=== PATIENT | female | born 1940 | race Caucasian/White ===

== ENCOUNTER 2016-11-08 13:51 | Emergency (ER) | payer MEDICARE, BC ==
[2016-11-08] MEDS ORDERED: LIDOCAINE HCL/EPINEPHRINE 30 ML VIAL IJ ONE (14:31)
[2016-11-08 15:19] VITALS: BP 157/50
--- NOTE | 2016-11-08 15:25 | ERNOTE ---
Integumentary HPI - Narrative Date of Service: 11/08/16 - General Presenting Symptoms: abscess Time Seen by Provider: 11/08/16 14:34 Source: patient Exam Limitations: no limitations - Immun/Allergies/Home Medications Allergies/Adverse Reactions: Allergies Allergy/AdvReac Type Severity Reaction Status Date / Time aspirin Allergy Mild Hives Verified 11/08/16 14:02 naproxen sodium [From Aleve] Allergy Mild Hives Verified 11/08/16 14:02 [id number] Reductase AdvReac Mild SIBLEY, MUSCLE Verified 11/08/16 14:02 Inhibitor AND JOINT ACHES Home Medications: HOME MEDICATIONS Albuterol Sulfate [Proair Hfa] 2 puff IH Q4H PRN 11/02/14 [Last Taken Unknown] Atenolol [Tenormin] 25 mg PO BID 11/02/14 [Last Taken Unknown] Budesonide/Formoterol Fumarate [Symbicort 160-4.5 Mcg Inhaler] 2 puff IH BID 06/09 [Last Taken Unknown] Levothyroxine Sodium [Synthroid] 88 mcg PO DAILY 11/02/14 [Last Taken Unknown] Loratadine [Claritin] 10 mg PO DAILY 11/02/14 [Last Taken Unknown] Montelukast Sodium [Singulair] 10 mg PO DAILY 11/02/14 [Last Taken Unknown] Simvastatin [Zocor] 20 mg PO HS 11/02/14 [Last Taken Unknown] Ascorbic Acid [Vitamin C] 1,000 mg PO DAILY 11/07/14 [Last Taken Unknown] Calcium Carbonate [[id number]] 1,000 mg PO DAILY 11/07/14 [Last Taken Unknown] Cholecalciferol (Vitamin D3) [Vitamin D-3] 2,000 unit PO DAILY 11/07/14 [Last Taken Unknown] [place]-3 Fatty Acids/Fish Oil [Fish Oil 1,000 mg Capsule] 1 each PO PRN 11/07/14 [Last Taken Unknown] Selenium 50 mcg PO PRN 11/07/14 [Last Taken Unknown] Vitamin B Complex [B Complex] 1 each PO PRN 11/07/14 [Last Taken Unknown] Vitamin E (Dl,Tocopheryl Acet) [Vitamin E] 400 units PO PRN 11/07/14 [Last Taken Unknown] Potassium Chloride [Klor-Con M10] 20 meq PO DAILY 02/16/15 [Last Taken Unknown] Meloxicam [Mobic] 15 mg PO DAILY #30 tablet 07/11/15 [Last Taken Unknown] Guaifenesin/Codeine Phosphate [Codeine-Guaifen 10-100 mg/5 ml] 120 ml PO TID PRN 7 Days 10/07/16 [Last Taken Unknown] Cephalexin [Keflex] 500 mg PO TID #30 capsule 11/08/16 [Last Taken Unknown] - Pain Pain Score: 6 - History of Present Illness Narrative: large abscess to right flank area measuring 2.5 x 2.5 cm with approximate 5 x 7 cm encircling erythema, tenderness, warmth. Denies fevers, chills or body aches. Recently treated for COPD exacerbation and states has finished her antibiotics. Location: Reports: torso Quality: Reports: painful Severity: moderate Exposure: Reports: no cause identified Modifying Factors - (Improves): Reports: nothing Modifying Factors - (Worsens): Reports: nothing Associated Symptoms: Reports: blisters, change in skin texture. Denies: rash, edema, fever, flushing, headache, nasal congestion, sore throat Review of Systems - Review of Systems Constitutional: Present: no symptoms reported. Absent: fever, chills, weakness , fatigue EYE: Present: no symptoms reported ENT: Present: no symptoms reported Respiratory: Present: other - complains of chronic SOB from COPD. Absent: no symptoms reported, wheezing Cardiology: Present: no symptoms reported. Absent: chest pain, palpitations, syncope Gastrointestinal/Abdominal: Present: no symptoms reported. Absent: nausea, vomiting, diarrhea Genitourinary: Present: no symptoms reported Musculoskeletal: Present: no symptoms reported Skin: Present: See HPI Neurological: Present: no symptoms reported Hematologic/Lymphatic: Present: no symptoms reported Psych: Present: no symptoms reported - Patient's Past Medical History Patient History - Medical: Hypothyroidism, Other Patient History - Cardiac/Respiratory: COPD, Hypertension, Hyperlipidemia Patient History - Cancer: No Hx of Cancer Patient History - Surgical Procedures: Cholecystectomy, T & A, Other - Social History Living Situations: spouse Smoking Status: Former smoker Alcohol Use: none Drug Use: none Physical Exam - Physical Exam General Appearance: Present: alert, no apparent distress Ears, Nose, Throat: Present: hearing grossly normal Neck: Present: normal inspection Respiratory: Present: no respiratory distress, normal breath sounds, no accessory muscle use, chest nontender, lungs clear Cardiovascular/Chest: Present: regular rate, rhythm, no murmur, normal peripheral pulses Back Exam: Present: normal inspection, no CVA tenderness, no vertebral tenderness Extremity Exam: Present: normal inspection, non-tender, no edema, normal range of motion Neurological Exam: Present: alert, oriented, normal mood/affect, no motor/ sensory deficits Skin Exam: Present: normal color, warm/dry, other - normal skin except for area of abscess Lymphatic Exam: Present: no adenopathy ED Progress - Vital Signs Patient's Vital Signs:: I have reviewed the patient's vital signs. Vital Signs: Vital Signs 11/08/16 13:59 Temperature 34.8 C L Pulse Rate 63 Respiratory 14 Rate Blood Pressure 146/57 O2 Sat by Pulse 99 Oximetry - Progress/Reassessment Chief Complaint: Abscess Progress:: Improved Procedures Right Lateral Abdomen Anesthesia: Lidocaine w/ Epi I & D Prep: betadine prep, sterile drapes applied, sterile dressing applied Blade Size: 11 Findings and Actions: purulent drainage moderate, cultures obtained Estimated blood loss (ml): 20 Complications: Pt nikole procedure well Departure Clinical Impression: Abscess - Departure Disposition: Home Follow Up Needed Condition: Good Instructions: Abscess, [id number] Additional Instructions: please soak in hot soapy tub once a day and allow abscess to drain in water. Ok if wound bleeds. Keep covered with dressing, changing daily Referrals: Luigi Johansen DO [Primary Care Provider] - Prescriptions: Cephalexin [Keflex] 500 mg PO TID #30 capsule
== END 2016-11-08 15:39 | disposition home or self-care (01) ==
LOC: ER 13:51
PROC: 0H97XZZ Drainage of Abdomen Skin, External Approach (ICD-10-PCS; principal; 2016-11-08)
DX: L02.211 Cutaneous abscess of abdominal wall (principal); Z87.891 Personal history of nicotine dependence